=== PATIENT | male | born 1995 | race Caucasian/White ===

== ENCOUNTER 2017-05-10 21:17 | Emergency (ER) | payer SELFPAY ==
[2017-05-10 21:28] VITALS: BP 120/82; PULSE 88; TEMP 98.2; BMI 30.4
[2017-05-10] MEDS ORDERED: MECLIZINE HCL 25 MG TABLET (FP) PO STA (23:05)
--- NOTE | 2017-05-10 23:05 | PDOC ---
History of Present Illness - General Exam Limitations: No Limitations - History of Present Illness Initial Comments: 05/10/17 23:08 The patient is a 21 year old male, with no significant past medical history, who presents to the emergency department complaining of, lightheadedness. The patient reports that approx. 3 weeks ago he was diagnosed with a sinusitis and prescribed antibiotics. However, the patient states that since his feeling of lightheadedness has been persistent. The patient also states that he has been having palpitations secondary to the lightheadedness. He denies any recent fevers, cough, chills, or headache. He denies any recent nausea, vomit, diarrhea or constipation. He denies any recent chest pain or shortness of breath. He denies any recent dysuria, frequency, urgency or hematuria. Allergies: NKA <Francois Anguiano - Last Filed: 05/11/17 00:08> - General History Source: Patient <PrinceNando curry - Last Filed: 05/11/17 00:39> - General Chief Complaint: Lightheaded Stated Complaint: FATIGUE Time Seen by Provider: 05/10/17 23:01 Past History <Francois Anguiano - Last Filed: 05/11/17 00:08> - Past Medical History COPD: No - Suicide/Smoking/Psychosocial Hx Smoking History: Smoker current status UNK <Nando Chapman - Last Filed: 05/11/17 00:39> - Past Medical History Allergies/Adverse Reactions: Allergies Allergy/AdvReac Type Severity Reaction Status Date / Time No Known Allergies Allergy Verified 05/10/17 21:24 Home Medications: Ambulatory Orders Meclizine HCl 25 mg PO TID #30 tablet 05/11/17 Review of Systems - Review of Systems Comments:: 05/10/17 23:09 CONSTITUTIONAL: Absent: fever, no chills EYES: Absent: visual changes ENT: Absent: ear pain, no sore throat CARDIOVASCULAR: Present: (+) Palpitations Absent: chest pain RESPIRATORY: Absent: cough, no SOB GI: Absent: abdominal pain, no nausea, no vomiting, no constipation, no diarrhea GENITOURINARY: Absent: dysuria, no frequency, no hematuria MUSKULOSKELETAL: Absent: back pain, no arthralgia, no myalgia SKIN: Absent: rash NEURO: Present: (+) Lightheadedness Absent: headache <Francois Anguiano - Last Filed: 05/11/17 00:08> *Physical Exam - Vital Signs Last Vital Signs Temp Pulse Resp BP Pulse Ox 98.2 F 88 18 120/82 98 05/10/17 21:27 05/10/17 21:27 05/10/17 21:27 05/10/17 21:27 05/10/17 21:27 - Physical Exam Comments: 05/10/17 23:10 GENERAL: Well developed, well nourished. Awake and alert. No acute distress. HEENT: Normocephalic, atraumatic. PERRLA, EOMI. No conjunctival pallor. Sclera are non- icteric. Moist mucous membranes. Oropharynx is clear. NECK: Supple. Full ROM. No JVD. Carotid pulses 2+ and symmetric, without bruits. No thyromegaly. No lymphadenopathy. CARDIOVASCULAR: Regular rate and rhythm. No murmurs, rubs, or gallops. Distal pulses are 2+ and symmetric. PULMONARY: No evidence of respiratory distress. Lungs clear to auscultation bilaterally. No wheezing, rales or rhonchi. ABDOMINAL: Soft. Non-tender. Non-distended. No rebound or guarding. No organomegaly. Normoactive bowel sounds. MUSCULOSKELETAL Normal range of motion at all joints. No bony deformities or tenderness. No CVA tenderness. EXTREMITIES: No cyanosis. No clubbing. No edema. No calf tenderness. SKIN: Warm and dry. Normal capillary refill. No rashes. No jaundice. NEUROLOGICAL: Alert, awake, appropriate. Cranial nerves 2-12 intact. No deficits to light touch and temperature in face, upper extremities and lower extremities. No motor deficits in the in face, upper extremities and lower extremities. Normoreflexic in the upper and lower extremities. Normal speech. Toes are down- going bilaterally. Gait is normal without ataxia. PSYCHIATRIC: Cooperative. Good eye contact. Appropriate mood and affect. <Francois Anguiano - Last Filed: 05/11/17 00:08> - Vital Signs Last Vital Signs Temp Pulse Resp BP Pulse Ox 98.2 F 88 18 120/82 98 05/10/17 21:27 05/10/17 21:27 05/10/17 21:27 05/10/17 21:27 05/10/17 21:27 <Nando Chapman - Last Filed: 05/11/17 00:39> ED Treatment Course - RADIOLOGY Radiograph Interpretation: 05/11/17 00:08 EXAM: HEAD CT WITHOUT CONTRAST HISTORY: Dizziness COMPARISON: None. FINDINGS: Normal brain. No acute intracranial abnormality. No hemorrhage. No visible infarct or mass. Osseous structures are intact. Reported by Hero Fitzpatrick MD 05/11/17 00:08 EXAM: CT paranasal sinuses without contrast HISTORY: Sinusitis COMPARISON: None. FINDINGS: All of the paranasal sinuses are well aerated without mass opacification or air-fluid level. Minimal mucosal thickening noted at the floor of the left maxillary sinus. The ostiomeatal units are patent. No inflammatory changes of the nasal cavity are noted. Reported by Hero Fitzpatrick MD <Francois Anguiano - Last Filed: 05/11/17 00:08> Medical Decision Making - Medical Decision Making 05/11/17 00:38 Dr.. Chapman: The scribe's documentation has been prepared under my direction and personally reviewed by me in its entirery. I confirm that the note above accurately reflects all work, treatment, procedures, and medical decision making performed by me. <Nando Chapman - Last Filed: 05/11/17 00:39> *DC/Admit/Observation/Transfer - Attestations Scribe Attestion: 05/10/17 23:10 Documentation prepared by Francois Anguiano, acting as medical billing specialist for Nando Chapman DO. <Francois Anguiano - Last Filed: 05/11/17 00:08> - Discharge Dispostion Admit: No <Nando Chapman - Last Filed: 05/11/17 00:39> Diagnosis at time of Disposition: Vertigo - Discharge Dispostion Disposition: HOME Condition at time of disposition: Stable - Prescriptions Prescriptions: Meclizine HCl 25 mg PO TID #30 tablet - Referrals Referrals: Fernando Gonzalez MD [Staff Physician] - - Patient Instructions Printed Discharge Instructions: DI for Vertigo Additional Instructions: continue taking Antibiotic you were prescribed. TAke medication as needed for dizziness. Meclizine will make you sleepy. Follow up with the ENT doctor if symptoms don't improve
[2017-05-10] MEDS ORDERED: MECLIZINE HCL 25 MG TABLET (FP) ONE (23:13)
== END 2017-05-11 00:32 | disposition home or self-care (01) ==
LOC: JER 21:17
DX: R42 Dizziness and giddiness (principal)
CPT/HCPCS: 70450-TC; 70486-TC; 99281-25